=== PATIENT | female | born 1940 | race Caucasian/White ===

== ENCOUNTER 2020-11-16 20:06 | Inpatient (IN) | payer MEDICARE, OTHER ==
[~2020-11-16] VITALS: Ht 154.9 cm; Wt 40.8 kg
[2020-11-16 21:28] LABS: HEMOGLOBIN 11.2 gm/dl (12.3-15.3); RED BLOOD COUNT 4.58 M/UL (4.00-5.10)
[2020-11-16 21:48] LABS: BUN/CREATININE RATIO 30 (0-10)
[2020-11-17] MEDS ORDERED: BENZTROPINE MESY1 MG PO (01:30)
[2020-11-17] MEDS ORDERED: FENTANYL1 EACH TD ×2 (01:31→15:36)
[2020-11-17] MEDS ORDERED: PROZAC 20 MG CA20 MG PO (01:33)
[2020-11-17] MEDS ORDERED: METHIMAZOLE5 MG PO (01:34)
[2020-11-17] MEDS ORDERED: MIRTAZAPINE15 MG PO (01:35)
[2020-11-17] MEDS ORDERED: ROPINIROLE HC0.25 MG PO (01:36)
[2020-11-17] MEDS ORDERED: ZOCOR 40 MG TAB40 MG PO (01:37)
[2020-11-17] MEDS ORDERED: ALPRAZOLAM1 MG PO (01:38)
[2020-11-17] MEDS ORDERED: METOCLOPRAMIDE H5 MG PO (01:39)
[2020-11-17] MEDS ORDERED: TRAMADOL HCL50 MG PO (01:40)
[2020-11-17] MEDS ORDERED: HYDROCODON-ACE1 EAC4 PO ×2 (01:41→15:36)
[2020-11-17] MEDS ORDERED: NAMZARIC 28 MG1 EACH PO (01:48)
[2020-11-17] MEDS ORDERED: PATADAY ONCE DAI5 ML OP (01:49)
[2020-11-17] MEDS ORDERED: DESYREL 50 MG T50 MG PO (01:50)
[2020-11-17] MEDS ORDERED: IPRAT-ALBUT 0.5-3 ML INH (01:51)
[2020-11-17] MEDS ORDERED: MEGACE 400400 MG/10 PO (01:52)
[2020-11-17] MEDS ORDERED: OYSTER SHELL C500 MG PO (01:52)
[2020-11-17] MEDS ORDERED: PROTONIX 40 MG40 MG PO ×2 (01:54→15:36)
[2020-11-17] MEDS ORDERED: SUCRALFATE1 GM/10 ML PO (01:55)
[2020-11-17] MEDS ORDERED: TYLENOL EXTRA500 MG PO (01:56)
[2020-11-17] MEDS ORDERED: FLINTSTONES WIT18 MG PO (01:57)
[2020-11-17] MEDS ORDERED: FLONASE 0.05% N16 GM (01:58)
[2020-11-17] MEDS ORDERED: CLARITIN10 M2 PO (01:58)
[2020-11-17] MEDS ORDERED: ARTIFICIAL TEAR15 ML EYEBOTH (02:01)
[2020-11-17] MEDS ORDERED: BISACODYL10 MG PR (02:04)
[2020-11-17] MEDS ORDERED: ZOFRAN ODT 4 MG4 MG PO (02:05)
[2020-11-17] MEDS ORDERED: SENNA LAX8.6 MG PO (02:06)
[2020-11-17] MEDS ORDERED: VITAMIN D21250 MCG PO (02:09)
--- NOTE | 2020-11-17 03:02 | NUR ---
SPOKE WITH SHADI IN [facility] ABOUT DR SÁNCHEZ'S NURSING COMMUNICATION ORDER FOR PHARMACY TO CONTINUE SOME MEDS. ORDER PRINTED AND SCANNED TO PHARMACY
[2020-11-19 02:52] LABS: HEMOGLOBIN 9.3 gm/dl (12.3-15.3); WHITE BLOOD COUNT 8.1 K/UL (4.5-11.0)
[2020-11-19 02:53] LABS: RED BLOOD COUNT 3.84 M/UL (4.00-5.10)
[2020-11-19 03:21] LABS: BUN/CREATININE RATIO 27 (0-10)
--- NOTE | 2020-11-21 12:02 | NUR ---
DR. COSBY CALLED DUE TO PT BEING SO DROWSY TODAY. ORDERS GIVEN FOR MEDS AND NEW LAB ORDERS AND ALSO DURAGESIC PATCH TAKEN OFF AND DISPOSED OF PER DR. COSBY'S ORDERS.
[2020-11-21 12:21] LABS: HEMOGLOBIN 9.6 gm/dl (12.3-15.3); RED BLOOD COUNT 3.93 M/UL (4.00-5.10)
[2020-11-21 12:25] LABS: WHITE BLOOD COUNT 13.6 K/UL (4.5-11.0)
[2020-11-21 12:48] LABS: BUN/CREATININE RATIO 48 (0-10)
[2020-11-22 05:59] LABS: WHITE BLOOD COUNT 10.4 K/UL (4.5-11.0)
[2020-11-22 06:01] LABS: HEMOGLOBIN 7.5 gm/dl (12.3-15.3); RED BLOOD COUNT 3.1 M/UL (4.00-5.10)
[2020-11-22 06:39] LABS: BUN/CREATININE RATIO 39 (0-10)
[2020-11-23 05:51] LABS: RED BLOOD COUNT 2.7 M/UL (4.00-5.10); WHITE BLOOD COUNT 8.3 K/UL (4.5-11.0)
[2020-11-23 05:52] LABS: HEMOGLOBIN 6.5 gm/dl (12.3-15.3)
[2020-11-23 06:40] LABS: BUN/CREATININE RATIO 23 (0-10)
--- NOTE | 2020-11-23 07:20 | NUR ---
DR. SÁNCHEZ CALLED AND ASKED IF PT WAS COMFORT MEASURES, WHEN FINDING OUT SHE WAS COMFORT MEASURES DR. SÁNCHEZ STATED CANCEL THE BLOOD TRANSFUSION AND ALL LABS. I ENTERED THIS INTO COMPUTER BUT ACCIDENTALLY PUT THAT DR. RICE ORDERED THIS BUT IT WAS DR. SÁNCHEZ, AND COMPUTER SYSTEM WOULDN'T LET ME CHANGE THIS.
[2020-11-23] MEDS ORDERED: MORPHINE SULFATE IVP (10:08)
[2020-11-23] MEDS ORDERED: ATIVAN IV/IM2 MG/ML IVP (10:08)
--- NOTE | 2020-11-23 12:23 | NUR ---
LABWORK DONE THIS AM ACCIDENTALLY. NIGHTSHIFT REPORTED TO DR. SÁNCHEZ WHO ORDERED BLOOD TRANSFUSION BUT DR SÁNCHEZ REALIZED THAT SHE IS COMFORT CARE AFTER HE ORDERED AND CALLED NURSE TO CANCEL BLOOD TRANSFUSION. MD ORDERED NO LABS OR STICKS, COMFORT CARE ONLY. FAMILY ONLY WANTS COMFORT CARE ALSO.
== END 2020-11-23 20:00 | DRG 480 ==
LOC: ER1 20:06 → MED SURG 4 21:12 → M/S 21:12 → CDU 21:12 → MED SURG 4 23:20 → M/S 11-18 13:16
PROVIDERS: Internal Medicine; Orthopaedic Surgery; Preventive Medicine Occupational Medicine; ADMIT Internal Medicine
PROC: 0QS604Z Reposition Right Upper Femur with Internal Fixation Device, Open Approach (ICD-10-PCS; principal; 2020-11-18 11:30)
DX: S72.101A Unspecified trochanteric fracture of right femur, initial encounter for closed fracture (principal); I26.99 Other pulmonary embolism without acute cor pulmonale; G93.41 Metabolic encephalopathy; K57.20 Diverticulitis of large intestine with perforation and abscess without bleeding; N30.00 Acute cystitis without hematuria; Z51.5 Encounter for palliative care; Z66 Do not resuscitate; G30.9 Alzheimer's disease, unspecified; D50.9 Iron deficiency anemia, unspecified; R73.9 Hyperglycemia, unspecified; F02.80 Dementia in other diseases classified elsewhere, unspecified severity, without behavioral disturbance, psychotic disturbance, mood disturbance, and anxiety; I10 Essential (primary) hypertension; J44.9 Chronic obstructive pulmonary disease, unspecified; F41.9 Anxiety disorder, unspecified; E05.90 Thyrotoxicosis, unspecified without thyrotoxic crisis or storm; F32.9 Major depressive disorder, single episode, unspecified; W18.30XA Fall on same level, unspecified, initial encounter; K21.9 Gastro-esophageal reflux disease without esophagitis; D64.9 Anemia, unspecified; Z90.710 Acquired absence of both cervix and uterus; Z88.0 Allergy status to penicillin; Z80.9 Family history of malignant neoplasm, unspecified
CPT/HCPCS: 36415; 36600; 51702; 70450; 71045; 73030; 73502; 73552; 74018; 76000; 80048; 80053; 80202; 81001; 82803; 82962; 83605; 83735; 84100; 85018; 85025; 85027; 85610; 86850; 86870; 86900; 86901; 86902; 86920; 86922; 87040; 87077; 87081; 87086; 87186; 93005; 94760; 97110-GP-CQ; 97161; 97530; 97530-GP-CQ; 99284; C1713; C9113; J0690; J1100; J1650; J2060; J2185; J2270; J2405; J3010; J3370; J7030; J7070; J7120; Q9967; U0002